=== PATIENT | female | born 1990 | race Caucasian/White ===

== ENCOUNTER 2022-02-24 12:16 | Outpatient (CLI) | payer MEDICAID, SELFPAY ==
[2022-02-24 14:57] LABS: Cholesterol* 211 mg/dL (90-199); Glucose* 98 mg/dL (60-115); Triglycerides* 171 mg/dL (40-149)
[2022-02-24 14:58] LABS: HDL Cholesterol* 83 mg/dL (>=50); LDL Cholesterol Calculated 94 mg/dL (<100)
== END 2022-02-24 12:17 | disposition home or self-care (01) ==
PROVIDERS: Visit Provider Obstetrics & Gynecology
DX: Z01.419 Encounter for gynecological examination (general) (routine) without abnormal findings (principal); Z13.1 Encounter for screening for diabetes mellitus; Z13.6 Encounter for screening for cardiovascular disorders
CPT/HCPCS: 80061; 82947; 87624; 88175

== ENCOUNTER 2022-02-27 10:33 | Outpatient (CLI) | payer MEDICAID, SELFPAY | END 2022-02-27 10:34 | disposition home or self-care (01) | LOC: NFLDREF 10:34 | PROVIDERS: Visit Provider Obstetrics & Gynecology | DX: Z01.419 Encounter for gynecological examination (general) (routine) without abnormal findings (principal); Z12.4 Encounter for screening for malignant neoplasm of cervix; Z13.1 Encounter for screening for diabetes mellitus; Z11.3 Encounter for screening for infections with a predominantly sexual mode of transmission | CPT/HCPCS: 87624 ==